=== PATIENT | male | born 1960 | race Caucasian/White ===

== ENCOUNTER 2017-03-22 10:44 | Emergency (ER) | payer OTHER ==
[~2017-03-22] VITALS: Ht 188 cm; Wt 95.0 kg
[2017-03-22] MEDS ORDERED: HYDROmorphone 1 MG/ML, 1ML IM ONE (11:30)
[2017-03-22] MEDS ORDERED: METHOCARBAMOL 750 MG TABLET PO ONE (11:30)
[2017-03-22] MEDS ORDERED: ONDANSETRON ODT 4 MG PO ONE (11:30)
[2017-03-22] MEDS ORDERED: KETOROLAC 30 MG/1 ML IM ONE (11:30)
[2017-03-22] MEDS ORDERED: ONDANSETRON ODT 4 MG ONE (11:36)
[2017-03-22] MEDS ORDERED: KETOROLAC 30 MG/1 ML ONE (11:37)
[2017-03-22] MEDS ORDERED: HYDROmorphone 1 MG/ML, 1ML ONE (11:37)
[2017-03-22] MEDS ORDERED: METHOCARBAMOL 750 MG TABLET ONE (11:37)
[2017-03-22 13:51] VITALS: BP 125/80
== END 2017-03-22 13:53 | disposition home or self-care (01) ==
LOC: ED 12:31
DX: S39.012A Strain of muscle, fascia and tendon of lower back, initial encounter (principal); X50.0XXA Overexertion from strenuous movement or load, initial encounter; X50.9XXA Other and unspecified overexertion or strenuous movements or postures, initial encounter; Y93.89 Activity, other specified; Y99.0 Civilian activity done for income or pay; Y92.69 Other specified industrial and construction area as the place of occurrence of the external cause
CPT/HCPCS: 72110; 96372; 99284; J1170; J1885; Q0162